=== PATIENT | female | born 2000 | race Caucasian/White ===

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

== ENCOUNTER 2020-04-24 16:26 | Emergency (ER) | payer MEDICAID ==
[~2020-04-24] VITALS: Ht 158.8 cm; Wt 61.7 kg
[2020-04-24 16:28] VITALS: BP 130/71
--- NOTE | 2020-04-24 16:37 | NUR ---
PT TAKEN TO ER BED 06
--- NOTE | 2020-04-24 16:58 | NUR ---
19 Y/O FEMALE C/O N/V AND ABD PAIN X1 WEEK, PT STATES SHE HAS HAD A POSITIVE TEST AND LMP: MAR 13 2020. PATIENT STATES LAST MEAL WAS YESTERDAY AND SHE HAS BEEN UNABLE TO KEEP ANYTHING DOWN D/T NAUSEA. PT IS WEAK/DIZZINESS AND HAS PHOTOSENSITIVITY. NO VAGINAL BLEEDING NOTED. CAP REFILL <3. SKIN, COOL ,DRY. NO PMH NKA
[2020-04-24] MEDS: NACL 0.9% 1,000 ML IV ONE (17:44)
[2020-04-24] MEDS: METOCLOPRAMIDE 10 MG/2 ML INJ VIAL IVP ONE (17:44)
--- NOTE | 2020-04-24 17:45 | NUR ---
PT UNABLE TO URINATE AT THIS TIME. FLUIDS BEING INFUSED. PT DENIES ANY PAIN OR NAUSEA
[2020-04-24 18:46] VITALS: BP 125/69
--- NOTE | 2020-04-24 18:47 | NUR ---
Patient discharged with v/s stable. Written and verbal after care instructions given and explained. Patient alert, oriented and verbalized understanding of instructions. Ambulatory with steady gait. All questions addressed prior to discharge. ID band removed. Patient advised to follow up with PMD. Rx of DICLEGIS given. Patient educated on indication of medication including possible reaction and side effects. Opportunity to ask questions provided and answered.
--- NOTE | 2020-04-26 13:00 | NUR ---
LATE ENTRY--CONFRIMED WITH RN END TIME OF NS IS 1844 04/24/20
== END 2020-04-24 18:47 | disposition home or self-care (01) ==
LOC: MED 16:26
DX: O21.8 Other vomiting complicating pregnancy (principal); O26.899 Other specified pregnancy related conditions, unspecified trimester; R51 Headache; R63.0 Anorexia; R53.83 Other fatigue
CPT/HCPCS: 81002; 81025; 96361; 96374; 99283; J2765; J7030

== ENCOUNTER 2020-05-04 16:33 | Emergency (ER) | payer MEDICAID ==
[~2020-05-04] VITALS: Ht 160 cm; Wt 60.1 kg
[2020-05-04 16:41] VITALS: BP 112/58
--- NOTE | 2020-05-04 16:52 | NUR ---
Patient ambulated to bed 7. RN evaluating patient at bedside.
--- NOTE | 2020-05-04 16:55 | NUR ---
19 y/o female referred from urgent care to rule out ectopic . Pt states she has had abd pain with nausea and vomiting x 1 wk. States 10/10 constant cramping. States she had 3 days of light red vaginal bleeding last week. Denies bleeding at this time. Abd soft, flat, slightly tender to palp. Positioned for comfort. medhx: denies
--- NOTE | 2020-05-04 16:56 | NUR ---
Dr. Parkinson is evaluating the patient at bedside.
--- NOTE | 2020-05-04 17:01 | NUR ---
Ultrasound at bedside
[2020-05-04 17:08] LABS: APPEARANCE,URINE HAZY (CLEAR); BILIRUBIN,URINE 2+ (NEGATIVE); BLOOD, URINE NEGATIVE (NEGATIVE); COLOR,URINE YELLOW (YELLOW); LEUKOCYTE ESTERASE ,URINE NEGATIVE (NEGATIVE); NITRITE, URINE NEGATIVE (NEGATIVE); UGLUCOSE TRACE (NEGATIVE)
[2020-05-04 17:09] LABS: BASOPHILS % (AUTO) 0.5 % (0.0-2.0); EOSINOPHILS % (AUTO) 0.1 % (0.0-4.0); HEMATOCRIT 39.2 % (36-48); HEMOGLOBIN 13.2 g/dL (12.0-16.0); LYMPHOCYTES # (AUTO) 1.6 K/uL (2.5-16.5); LYMPHOCYTES % (AUTO) 26.4 % (20.5-51.1); MEAN CORPUSCULAR HEMOGLOBIN 28 pg (27-31); MEAN CORPUSCULAR HGB CONC 34 g/dL (33-37); MEAN CORPUSCULAR VOLUME 82.7 fL (80-94); MONOCYTES # (AUTO) 0.3 K/uL (0.8-1.0); MONOCYTES % (AUTO) 5.4 % (1.7-9.3); NEUTROPHILS # (AUTO) 4.1 K/uL (1.8-7.7); NEUTROPHILS % (AUTO) 67.6 % (42.2-75.2); PLATELET COUNT (AUTO) 302 K/uL (140-450); RED BLOOD CELL COUNT(AUTO) 4.74 MIL/uL (4.20-5.40); RED CELL DISTRIBUTION WIDTH 13.5 % (11.6-13.7); WHITE BLOOD COUNT (AUTO) 6.1 K/uL (4.5-11.0)
[2020-05-04 17:21] LABS: ANION GAP 15.9 (8-16); CARBON DIOXIDE 25.5 mmol/L (21-32); CREATININE 0.9 mg/dL (0.6-1.3); POTASSIUM 4.4 mmol/L (3.5-5.1)
--- NOTE | 2020-05-04 17:45 | NUR ---
Pt resting in bed awake and alert, positioned comfortably. VSS, will continue to monitor
[2020-05-04 17:54] VITALS: BP 112/58
--- NOTE | 2020-05-04 17:55 | NUR ---
Patient discharged with v/s stable. Written and verbal after care instructions given and explained. Patient alert, oriented and verbalized understanding of instructions. Ambulatory with steady gait. All questions addressed prior to discharge. ID band removed. Patient advised to follow up with PMD. Rx of Pepcid 40mg given. Patient educated on indication of medication including possible reaction and side effects. Opportunity to ask questions provided and answered.
== END 2020-05-04 17:55 | disposition home or self-care (01) ==
LOC: MED 16:33
DX: O26.891 Other specified pregnancy related conditions, first trimester (principal); Z3A.01 Less than 8 weeks gestation of pregnancy
CPT/HCPCS: 36415; 76801; 80048; 81003; 81025; 84702; 85025; 86900; 86901; 99284; Q0092

== ENCOUNTER 2020-06-10 21:30 | Emergency (ER) | payer MEDICAID ==
[~2020-06-10] VITALS: Ht 157.5 cm; Wt 62.1 kg
[2020-06-10 21:36] VITALS: BP 147/83
--- NOTE | 2020-06-10 21:41 | NUR ---
PT AMBULATED TO ER BED 4 W/ STEADY GAIT.
[2020-06-10 21:47] VITALS: BP 147/83
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
[2020-06-10 22:13] LABS: BASOPHILS # (AUTO) 0.1 K/uL (0.00-0.22); BASOPHILS % (AUTO) 0.7 % (0.0-2.0); EOSINOPHILS # (AUTO) 0.1 K/uL (0-0.4); EOSINOPHILS % (AUTO) 0.8 % (0.0-4.0); HEMATOCRIT 39.3 % (36-48); HEMOGLOBIN 12.9 g/dL (12.0-16.0); LYMPHOCYTES # (AUTO) 1.8 K/uL (2.5-16.5); LYMPHOCYTES % (AUTO) 26.5 % (20.5-51.1); MEAN CORPUSCULAR HEMOGLOBIN 28 pg (27-31); MEAN CORPUSCULAR HGB CONC 33 g/dL (33-37); MEAN CORPUSCULAR VOLUME 83.8 fL (80-94); MONOCYTES # (AUTO) 0.5 K/uL (0.8-1.0); MONOCYTES % (AUTO) 7.6 % (1.7-9.3); NEUTROPHILS # (AUTO) 4.5 K/uL (1.8-7.7); NEUTROPHILS % (AUTO) 64.4 % (42.2-75.2); PLATELET COUNT (AUTO) 315 K/uL (140-450); RED BLOOD CELL COUNT(AUTO) 4.69 MIL/uL (4.20-5.40); RED CELL DISTRIBUTION WIDTH 14.2 % (11.6-13.7); WHITE BLOOD COUNT (AUTO) 6.9 K/uL (4.5-11.0)
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
[2020-06-10 22:27] LABS: BARBITURATE, URINE NEGATIVE ng/ml (NEG <=200); BENZODIAZEPINE, URINE NEGATIVE ng/mL (NEG <=200); CANNABINOID, URINE NEGATIVE ng/mL (NEG <=50); COCAINE, URINE NEGATIVE ng/mL (NEG <=300); OPIATE, URINE NEGATIVE ng/mL (NEG <=2000); PHENCYCLIDINE SCREEN,URINE NEGATIVE ng/mL (NEG <=25)
[2020-06-10 22:31] LABS: ALBUMIN 4.2 g/dL (3.4-5.0); ANION GAP 15.7 (8-16); ASPARTATE AMINOTRANSFERASE 15 U/L (15-37); CARBON DIOXIDE 26.5 mmol/L (21-32); CHLORIDE 101 mmol/L (98-107); CREATININE 0.8 mg/dL (0.6-1.3); GFR ARICAN-AMERICAN 119 mL/min (>90); GLUCOSE 110 mg/dL (74-106); POTASSIUM 4.2 mmol/L (3.5-5.1); SODIUM SERUM 139 mmol/L (136-145); TOTAL BILIRUBIN 0.6 mg/dL (0.0-1.0); UREA NITROGEN, BLOOD 10 mg/dL (7-18)
--- NOTE | 2020-06-10 22:44 | NUR ---
PER TELEPSYCH REQUEST INITIATED
--- NOTE | 2020-06-10 22:45 | NUR ---
TELE PSYCH MONITOR AT BEDSIDE.
--- NOTE | 2020-06-10 23:28 | NUR ---
TELE PSYCH CONSULT COMPLETE. ER MD AWARE WITH RECOMMENDATIONS.
--- NOTE | 2020-06-10 23:44 | NUR ---
PER PATIENT, OK TO RELEASE INFORMATION TO DANI, HER BOYFRIEND's AUNT. PT REPORTS FEELING COMFORTABLE WITH HER AND REQUESTS TO UPDATE HER. SPOKE WITH DANI AND GAVE UPDATE. 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 AT THIS TIME, PT STILL REPORTS NOT FEELING COMFORTABLE WITH LEAVING WITH GIANCARLO. NO DISTRESS NOTED, PT DENIES PAIN. DENIES SUICIDAL IDEATION.
--- NOTE | 2020-06-11 00:15 | NUR ---
Patient discharged with v/s stable. Written and verbal after care instructions given and explained. Patient verbalized understanding. Ambulatory with steady gait. All questions addressed prior to discharge. Advised to follow up with PMD. PT's VALENTINA LOUISE HERE TO PICK HER UP, PT IN STABLE CONDITION.
== END 2020-06-11 00:15 | disposition home or self-care (01) ==
LOC: MED 21:30
DX: R41.3 Other amnesia (principal)
CPT/HCPCS: 36415; 80053; 80305; 81025; 84703; 85025; 99283; G0482

== ENCOUNTER 2020-12-07 17:59 | Emergency (ER) | payer MEDICAID ==
[~2020-12-07] VITALS: Ht 157.5 cm; Wt 63.5 kg
[2020-12-07 18:12] VITALS: BP 107/60
--- NOTE | 2020-12-07 18:21 | NUR ---
Pt taken to ER bed 4.
--- NOTE | 2020-12-07 18:26 | NUR ---
20 Y/O FEMALE C/O HEADACHE, LOWER BACK PAIN 02/10 DESCRIBES SHARP , NAUSEA X 2 WEEKS. PT DENIES DYSURIA, DENIES FEVER/CHILLS. ABDOMEN IS SOFT, FLAT, NON-TENDER BOWEL SOUNDS ACTIVE X4, LAST BM 12/06/20. DENIES PMH NKA
--- NOTE | 2020-12-07 19:14 | NUR ---
Gave report to GEORGI Duenas. Transfer of care at this time.
[2020-12-07] MEDS ORDERED: IBUPROFEN 600 MG TAB PO ONE (19:55)
[2020-12-07] MEDS ORDERED: ONDANSETRON 4 MG ODT PO ONE (19:55)
[2020-12-07] MEDS ORDERED: ACETAMINOPHEN 325 MG TAB PO ONE (19:55)
--- NOTE | 2020-12-07 20:30 | NUR ---
IS FEELING MORE COMFORTABLE, PAIN HAS EASED
[2020-12-07] MEDS ORDERED: ONDA-24 PO (20:31)
[2020-12-07] MEDS ORDERED: ACET-9500 PO (20:31)
[2020-12-07 20:36] VITALS: BP 107/60
--- NOTE | 2020-12-07 20:36 | NUR ---
Patient discharged with v/s stable. Written and verbal after care instructions given and explained. Patient verbalized understanding. Ambulatory with steady gait. All questions addressed prior to discharge. Advised to follow up with PMD.
== END 2020-12-07 20:36 | disposition home or self-care (01) ==
LOC: MED 17:59
DX: R51.9 Headache, unspecified (principal)
CPT/HCPCS: 81002; 81025; 99283; Q0162

== ENCOUNTER 2021-01-17 00:18 | Emergency (ER) | payer MEDICAID ==
[~2021-01-17] VITALS: Ht 160 cm; Wt 56.7 kg
[~2021-01-17 00:18] MED LIST: ACET-9500 PO; ONDA-24 PO
[2021-01-17 00:35] VITALS: BP 107/67
--- NOTE | 2021-01-17 00:40 | NUR ---
PT AMBULATORY TO LOBBY TO A/W BED. UNABLE TO PROVIED URINE SPECIMEN AT THIS TIME.
[2021-01-17 01:32] LABS: BASOPHILS % (AUTO) 0.7 % (0.0-2.0); EOSINOPHILS % (AUTO) 0.3 % (0.0-4.0); HEMATOCRIT 41.2 % (36-48); HEMOGLOBIN 14.2 g/dL (12.0-16.0); LYMPHOCYTES # (AUTO) 2.3 K/uL (2.5-16.5); MEAN CORPUSCULAR HEMOGLOBIN 30 pg (27-31); MEAN CORPUSCULAR HGB CONC 34 g/dL (33-37); MEAN CORPUSCULAR VOLUME 86.1 fL (80-94); MONOCYTES # (AUTO) 0.4 K/uL (0.8-1.0); MONOCYTES % (AUTO) 6.7 % (1.7-9.3); NEUTROPHILS # (AUTO) 3.8 K/uL (1.8-7.7); NEUTROPHILS % (AUTO) 57.3 % (42.2-75.2); PLATELET COUNT (AUTO) 315 K/uL (140-450); RED BLOOD CELL COUNT(AUTO) 4.78 MIL/uL (4.20-5.40); RED CELL DISTRIBUTION WIDTH 12.8 % (11.6-13.7); WHITE BLOOD COUNT (AUTO) 6.6 K/uL (4.5-11.0)
[2021-01-17 01:43] LABS: CARBON DIOXIDE 23.8 mmol/L (21-32); CREATININE 0.8 mg/dL (0.6-1.3); POTASSIUM 4.4 mmol/L (3.5-5.1)
--- NOTE | 2021-01-17 01:45 | NUR ---
PT AMBULATORY TO BED #11. PT STILL UNABLE TO PROVIDE URINE SPECIMEN
[2021-01-17 01:49] LABS: ALBUMIN 4.7 g/dL (3.4-5.0); TOTAL BILIRUBIN 1.5 mg/dL (0.0-1.0)
--- NOTE | 2021-01-17 01:50 | NUR ---
DR. LOMBARDI AT BEDSIDE FOR MSE.
[2021-01-17] MEDS ORDERED: ONDANSETRON 4 MG/2 ML VIAL IVP ONE (01:55)
[2021-01-17] MEDS ORDERED: NACL 0.9% 1,000 ML IV ONE (01:55)
[2021-01-17 02:03] LABS: ANION GAP 20.6 (8-16)
[2021-01-17] MEDS ORDERED: DOXY1TAB6 PO (03:12)
--- NOTE | 2021-01-17 03:45 | NUR ---
PT UNABLE TO PROVIDE URINE AT THIS TIME. ERMD AWARE.
[2021-01-17 03:56] VITALS: BP 111/55
--- NOTE | 2021-01-17 03:56 | NUR ---
Patient discharged with v/s stable. Written and verbal after care instructions given and explained. Patient alert, oriented and verbalized understanding of instructions. Ambulatory with steady gait. All questions addressed prior to discharge. ID band removed. Patient advised to follow up with PMD. Rx of DOXYLAMINE SUCCINATE/VIT B6 given. Patient educated on indication of medication including possible reaction and side effects. Opportunity to ask questions provided and answered.
== END 2021-01-17 03:56 | disposition home or self-care (01) ==
LOC: MED 00:18
DX: O21.0 Mild hyperemesis gravidarum (principal); Z3A.01 Less than 8 weeks gestation of pregnancy; Z79.899 Other long term (current) drug therapy
CPT/HCPCS: 36415; 80053; 84702; 85025; 96361; 96374; 99283; J2405; J7030

== ENCOUNTER 2021-12-27 22:51 | Emergency (ER) | payer MEDICAID ==
[~2021-12-27] VITALS: Ht 160 cm; Wt 61.2 kg
[~2021-12-27 22:51] MED LIST changes: +ACET-8001 PO; -ACET-9500 PO; +DOXY1TAB6 PO; +ONDA-188 PO; -ONDA-24 PO
[2021-12-27 23:05] VITALS: BP 98/62
--- NOTE | 2021-12-27 23:14 | NUR ---
PT TAKEN TO BED 11
--- NOTE | 2021-12-27 23:21 | NUR ---
ER AT BEDSIDE
[2021-12-27] MEDS ORDERED: PYRIDOXINE 50 MG TAB PO STA (23:27)
[2021-12-27] MEDS ORDERED: NACL 0.9% 1,000 ML IV ONE (23:30)
--- NOTE | 2021-12-27 23:33 | NUR ---
CHILDCARE DIRECTOR AT BEDSIDE
[2021-12-27] MEDS ORDERED: CRUSHER, PILL MC ONE (23:36)
[2021-12-27 23:44] LABS: BASOPHILS % (AUTO) 0.6 % (0.0-2.0); EOSINOPHILS # (AUTO) 0.1 K/uL (0-0.4); EOSINOPHILS % (AUTO) 1.4 % (0.0-4.0); HEMOGLOBIN 12.7 g/dL (12.0-16.0); LYMPHOCYTES # (AUTO) 2.5 K/uL (2.5-16.5); LYMPHOCYTES % (AUTO) 41.9 % (20.5-51.1); MEAN CORPUSCULAR HEMOGLOBIN 29 pg (27-31); MEAN CORPUSCULAR HGB CONC 34 g/dL (33-37); MEAN CORPUSCULAR VOLUME 84.9 fL (80-94); MONOCYTES # (AUTO) 0.5 K/uL (0.8-1.0); MONOCYTES % (AUTO) 8.1 % (1.7-9.3); NEUTROPHILS # (AUTO) 2.9 K/uL (1.8-7.7); PLATELET COUNT (AUTO) 259 K/uL (140-450); RED BLOOD CELL COUNT(AUTO) 4.36 MIL/uL (4.20-5.40); RED CELL DISTRIBUTION WIDTH 12.9 % (11.6-13.7); WHITE BLOOD COUNT (AUTO) 5.9 K/uL (4.8-10.8)
[2021-12-28 00:09] LABS: ANION GAP 11.2 (8-16); CREATININE 0.8 mg/dL (0.6-1.3); MAGNESIUM 2.4 mg/dL (1.8-2.4); POTASSIUM 4.2 mmol/L (3.5-5.1); TOTAL BILIRUBIN 0.6 mg/dL (0.0-1.0)
--- NOTE | 2021-12-28 00:12 | NUR ---
21 Y/O FEMALE BIBS FROM HOME, C/O N/V X6 DAYS. PT STATES NO BLOOD IN VOMIT, PT IS HUNGRY BECAUSE SHE IS "NOT ABLE TO HOLD ANYTHING DOWN." PT IS SEEING OBGYN AND WAS RX B6 BUT INSURANCE WILL NOT COVER. G3, P2, Ab1. A/OX4, GCS-15; UNLABORED BREATHING AND SPEAKING IN FULL SENTENCES; AMBULATORY W/O ASSISTANCE; SKIN NORMAL/DRY/WARM; PT SEATED IN BED WITH HOB RAISED, BED IN LOWEST SETTING, AND RAIL UP X1. NO PMH NKA
[2021-12-28] MEDS ORDERED: ONDA-188 SL (00:44)
[2021-12-28] MEDS ORDERED: DOXY1TCP PO (00:44)
[2021-12-28 01:43] VITALS: BP 110/70
--- NOTE | 2021-12-28 01:44 | NUR ---
Patient discharged with v/s stable. Written and verbal after care instructions given and explained. Patient alert, oriented and verbalized understanding of instructions. Ambulatory with steady gait. All questions addressed prior to discharge. ID band removed. Patient advised to follow up with PMD. Rx of DICLEGIS [id number] Tab given. Patient educated on indication of medication including possible reaction and side effects. Opportunity to ask questions provided and answered. VSS, A/OX4, UNLABORED BREATHING, AMBULATORY, AND CALM DEMEANOR.
== END 2021-12-28 01:42 | disposition home or self-care (01) ==
LOC: MED 22:51
DX: O21.8 Other vomiting complicating pregnancy (principal); Z79.899 Other long term (current) drug therapy; Z3A.01 Less than 8 weeks gestation of pregnancy
CPT/HCPCS: 36415; 80053; 81002; 81025; 83735; 85025; 96360; 99283; J7030

== ENCOUNTER 2022-01-06 14:40 | Emergency (ER) | payer MEDICAID ==
[~2022-01-06] VITALS: Ht 160 cm; Wt 59.0 kg
[~2022-01-06 14:40] MED LIST changes: +DOXY1TCP PO; +ONDA-188 SL
[2022-01-06 15:00] VITALS: BP 110/74
[2022-01-06] MEDS ORDERED: NACL 0.9% 1,000 ML IV ONE ×2 (15:05→16:25)
[2022-01-06] MEDS ORDERED: ONDANSETRON 4 MG/2 ML VIAL IVP ONE (15:05)
[2022-01-06 15:25] LABS: BASOPHILS % (AUTO) 0.5 % (0.0-2.0); EOSINOPHILS % (AUTO) 0.8 % (0.0-4.0); HEMATOCRIT 36.1 % (36-48); HEMOGLOBIN 12.4 g/dL (12.0-16.0); LYMPHOCYTES # (AUTO) 1.9 K/uL (2.5-16.5); MEAN CORPUSCULAR HEMOGLOBIN 29 pg (27-31); MEAN CORPUSCULAR HGB CONC 34 g/dL (33-37); MEAN CORPUSCULAR VOLUME 83.7 fL (80-94); MONOCYTES # (AUTO) 0.4 K/uL (0.8-1.0); MONOCYTES % (AUTO) 6.8 % (1.7-9.3); NEUTROPHILS # (AUTO) 3.1 K/uL (1.8-7.7); NEUTROPHILS % (AUTO) 56.9 % (42.2-75.2); PLATELET COUNT (AUTO) 278 K/uL (140-450); RED BLOOD CELL COUNT(AUTO) 4.31 MIL/uL (4.20-5.40); RED CELL DISTRIBUTION WIDTH 13.1 % (11.6-13.7); WHITE BLOOD COUNT (AUTO) 5.4 K/uL (4.8-10.8)
--- NOTE | 2022-01-06 15:28 | NUR ---
21 Y/O FEMALE BIB SELF C/O N/V. STATES THAT SHE IS 7 WEEKS AND THAT THIS ALWAYS HAPPENS. DENIED ANY DIZZINESS. TOOK ZOFRAN OFT WITHOUT ANY EFFECT. [id number] NKA PMH: DENIES
[2022-01-06 15:50] LABS: ALBUMIN 3.7 g/dL (3.4-5.0); ANION GAP 9.6 (8-16); CREATININE 0.7 mg/dL (0.6-1.3); POTASSIUM 3.6 mmol/L (3.5-5.1); TOTAL BILIRUBIN 0.8 mg/dL (0.0-1.0)
[2022-01-06] MEDS ORDERED: PYRIDOXINE 50 MG TAB PO SCH ×2 (16:10)
--- NOTE | 2022-01-06 16:33 | NUR ---
PT UNABLE TO GIVE URINE AT THIS TIME
[2022-01-06 17:09] VITALS: BP 102/51
--- NOTE | 2022-01-06 17:25 | NUR ---
PT AMBULATED TO THE BATHROOM WITH STEADY GAIT
--- NOTE | 2022-01-06 17:26 | NUR ---
PT STATED THEY NOTED BRIGHT RED VAGINAL BLEEDING WHILE IN THE BATHROOM, DR BRIONES MADE AWARE
[2022-01-06 18:09] LABS: APPEARANCE,URINE CLEAR (CLEAR); BILIRUBIN,URINE NEGATIVE (NEGATIVE); BLOOD, URINE NEGATIVE (NEGATIVE); COLOR,URINE YELLOW (YELLOW); LEUKOCYTE ESTERASE ,URINE NEGATIVE (NEGATIVE); NITRITE, URINE NEGATIVE (NEGATIVE); UGLUCOSE NEGATIVE (NEGATIVE)
--- NOTE | 2022-01-06 18:12 | NUR ---
ULTRASOUND AT BEDSIDE
[2022-01-06 18:17] LABS: RBC,URINE 0-5 /HPF (0-5); WBC,URINE 0-5 /HPF (0-5)
--- NOTE | 2022-01-06 18:41 | NUR ---
PT OFFERED APPLE JUICE AND RHONDA CRACKERS
[2022-01-06] MEDS ORDERED: PYRI50CA2 PO (19:20)
[2022-01-06] MEDS ORDERED: PYRI25TA11 PO (19:20)
--- NOTE | 2022-01-06 19:22 | NUR ---
Pt report given to EVERTON LAUREANO. Transfer of care at this time.
--- NOTE | 2022-01-06 19:35 | NUR ---
Patient discharged with v/s stable. Written and verbal after care instructions given and explained. Patient alert, oriented and verbalized understanding of instructions. Ambulatory with steady gait. All questions addressed prior to discharge. ID band removed. Patient advised to follow up with PMD. Rx of PYRIDOXINE given. Patient educated on indication of medication including possible reaction and side effects. Opportunity to ask questions provided and answered.
[2022-01-07] MEDS ORDERED: PYRIDOXINE 50 MG TAB PO SCH ×2 (09:00)
== END 2022-01-06 19:35 | disposition home or self-care (01) ==
LOC: MED 14:40
DX: O21.8 Other vomiting complicating pregnancy (principal); O20.0 Threatened abortion; Z3A.01 Less than 8 weeks gestation of pregnancy; Z79.899 Other long term (current) drug therapy
CPT/HCPCS: 36415; 76817; 80053; 81001; 81025; 83690; 84702; 85025; 87086; 96361; 96374; 99284; J2405; Q0092; J7030

== ENCOUNTER 2022-02-15 02:38 | Emergency (ER) | payer MEDICAID ==
[~2022-02-15] VITALS: Ht 157.5 cm; Wt 59.0 kg
[~2022-02-15 02:38] MED LIST changes: +PYRI25TA11 PO; +PYRI50CA2 PO
[2022-02-15 02:42] VITALS: BP 116/74
[2022-02-15 02:49] VITALS: BP 116/74
--- NOTE | 2022-02-15 02:49 | NUR ---
PATIENT AMBULATED TO BED 9
--- NOTE | 2022-02-15 03:20 | NUR ---
21/F BIB SELF FROM HOME C/O COUGHING X2DAYS. PATIENT STATED "I HAVE PAIN, CONGESTION AND COUGH THATS CAUSING ME TO HAVE CHEST TIGHTNESS." PATIENT STATED THAT PAIN IS 8/10 AND CONSTANT. PATIENT DENIES N/V/D/C. DENIES ANYONE ELSE IN HOUSEHOLD BEING SICK. PATIENT PLACED ON THE MONITOR, O2 SAT 98%. RR APPEAR TO BE EVEN AND UNLABORED. DOESNT APPEAR TO BE IN DISTRESS. BED LOW AND LOCKED. ALL NEEDS MET. DENIES PMHX, RX NKA
--- NOTE | 2022-02-15 03:31 | NUR ---
Patient being evaluated by physician at bedside.
[2022-02-15] MEDS ORDERED: KETOROLAC 30 MG/ML VIAL IM ONE (03:40)
--- NOTE | 2022-02-15 03:48 | NUR ---
BEATAN AMBULATED TO AND BACK TO BED 9. URINE COLLECTED
--- NOTE | 2022-02-15 03:48 | NUR ---
RAD AT BEDSIDE
[2022-02-15] MEDS ORDERED: ROBAC PO (04:42)
[2022-02-15] MEDS ORDERED: NAPR-1704 PO (04:42)
--- NOTE | 2022-02-15 04:48 | NUR ---
Patient discharged with v/s stable. Written and verbal after care instructions given and explained. Patient alert, oriented and verbalized understanding of instructions. Ambulatory with steady gait. All questions addressed prior to discharge. ID band removed. Patient advised to follow up with PMD. Rx of NAPROSYN AND CODIENE/GUIAFENISIN given. Patient educated on indication of medication including possible reaction and side effects. Opportunity to ask questions provided and answered.
== END 2022-02-15 04:48 | disposition home or self-care (01) ==
LOC: MED 02:38
DX: J20.9 Acute bronchitis, unspecified (principal)
CPT/HCPCS: 71045; 81025; 96372; 99283; J1885; Q0092

== ENCOUNTER 2022-12-24 13:23 | Emergency (ER) | payer MEDICAID ==
[~2022-12-24] VITALS: Ht 172.7 cm; Wt 57.6 kg
[~2022-12-24 13:23] MED LIST changes: +NAPR-1704 PO; +ROBAC PO
[2022-12-24 13:52] VITALS: BP 99/60
--- NOTE | 2022-12-24 14:53 | NUR ---
AMB. TO BED 1, NO ACUTE DISTRESS
--- NOTE | 2022-12-24 15:31 | NUR ---
22 yo/f presents to ED w c/o headche 05/13 throbbing, and tailbone pain 05/13 sharp non-rad since 1000 today, + L knee pain. pt hit R side of head first, then tail bone, then knee, pt also c/o nausea, dizzines. pt refusing pain meds. pt aox4, gcs15. significant other t bedside. pmh: denies allergies: denies Addendum: 12/24/22 at 1539 by [id number] denied loc
--- NOTE | 2022-12-24 15:40 | NUR ---
PT REQUESTING MEDICATION FOR NAUSEA. LESLIE ORDONEZ MADE AWARE.
[2022-12-24] MEDS ORDERED: KETOROLAC 30 MG/ML VIAL IM ONE (15:50)
[2022-12-24] MEDS ORDERED: ONDANSETRON 4 MG ODT PO ONE (15:50)
--- NOTE | 2022-12-24 15:50 | NUR ---
PT REPORT TO GEORGI LAN
[2022-12-24] MEDS ORDERED: IBUP-2213 PO (17:43)
[2022-12-24] MEDS ORDERED: ACET-10509 PO (17:43)
[2022-12-24] MEDS ORDERED: ONDA-188 PO (17:43)
[2022-12-24 17:50] VITALS: BP 116/53
== END 2022-12-24 17:50 | disposition home or self-care (01) ==
LOC: MED 13:23
DX: S06.0X0A Concussion without loss of consciousness, initial encounter (principal); M54.50 Low back pain, unspecified; Z79.899 Other long term (current) drug therapy; V00.131A Fall from skateboard, initial encounter; Y93.89 Activity, other specified; Y92.89 Other specified places as the place of occurrence of the external cause; Y99.8 Other external cause status
CPT/HCPCS: 72220; 81025; 96372; 99283; J1885; Q0162

== ENCOUNTER 2023-12-05 10:48 | Emergency (ER) | payer OTHER, MEDICAID ==
[~2023-12-05] VITALS: Ht 157.5 cm; Wt 58.2 kg
[~2023-12-05 10:48] MED LIST changes: +ACET-10509 PO; +IBUP-2213 PO
[2023-12-05 10:57] VITALS: BP 108/69; PULSE 73; RESP 20; TEMP 98.2; O2SAT 100
[2023-12-05] MEDS ORDERED: LIDO76.56 TP (12:09)
[2023-12-05] MEDS ORDERED: CYCL-711 PO (12:09)
[2023-12-05] MEDS ORDERED: IBUP-2218 PO (12:09)
[2023-12-05 13:23] VITALS: BP 134/65; PULSE 85; RESP 18; TEMP 98.3; O2SAT 98
== END 2023-12-05 13:18 | disposition home or self-care (01) ==
LOC: MED 10:48
DX: S33.5XXA Sprain of ligaments of lumbar spine, initial encounter (principal); Z79.1 Long term (current) use of non-steroidal anti-inflammatories (NSAID); Z79.899 Other long term (current) drug therapy; V89.2XXA Person injured in unspecified motor-vehicle accident, traffic, initial encounter; Y93.89 Activity, other specified; Y92.89 Other specified places as the place of occurrence of the external cause; Y99.8 Other external cause status
CPT/HCPCS: 81025; 99283